=== PATIENT | female | born 1985 | race Caucasian/White ===

== ENCOUNTER 2016-09-15 14:14 | Emergency (ER) | payer OTHER ==
[~2016-09-15 14:14] MED LIST: ANTIBIOTIC; OXYCODONE/APAP
[2016-09-15] MEDS ORDERED: NO HOME MEDICATION XX (16:02)
[2016-09-15 17:02] LABS: BASO % 0.2 % (0-2); EOS % 1.3 % (0-7); EOSINOPHIL ABSOLUTE COUNT 0.1 tho/cmm (0.0-0.7); HCT-HEMATOCRIT 40.4 % (34.0-49.0); HGB-HEMOGLOBIN 13.7 gm/dl (12.0-15.5); IMMATURE GRANULOCYTES ABSOLUTE 0.01 tho/cmm (0-0.03); IMMATURE GRANULOCYTES PERCENT 0.1 % (0-0.3); LYMPH % 20.6 % (20-45); LYMPH ABSOLUTE COUNT 1.7 tho/cmm (0.8-4.5); MCH (MEAN CORPUSCULAR HGB) 30.8 pg (28.0-32.0); MCHC MEAN CORPUSCULAR HGB CONC 33.9 % (32.0-36.0); MCV (MEAN CELL VOLUME) 90.8 fl (82.0-96.0); MEAN PLATELET VOLUME 10.4 cmc (9.4-12.4); MONO % 9.1 % (0-12); MONOCYTE ABSOLUTE COUNT 0.8 tho/cmm (0.0-1.2); NEUTROPHIL ABSOLUTE COUNT 5.7 tho/cmm (1.6-8.0); NEUTROPHIL-AUTOMATED 5.7 tho/cmm (1.6-8.0); NEUTROPHILS % 68.7 % (40-80); PLATELET COUNT 305 tho/cmm (150-450); RED BLOOD COUNT 4.45 mil/cmm (4.00-5.20); WHITE BLOOD COUNT 8.3 tho/cmm (4.0-10.0)
[2016-09-15 17:19] LABS: PREGNANCY-SERUM NEGATIVE (NEGATIVE)
[2016-09-15 17:27] LABS: ANION GAP 9 mmol/L (0-20); BLOOD UREA NITROGEN 10 mg/dl (6-24); CALCIUM 9.4 mg/dl (8.5-10.5); CARBON DIOXIDE-VENOUS 30 mmol/L (22-32); CHLORIDE 104 mmol/l (96-110); CREATININE 0.81 mg/dl (0.50-1.10); GLUCOSE 95 mg/dL (70-110); POTASSIUM 3.8 mmol/L (3.7-5.1); SODIUM 139 mmol/L (135-145); eGFR VALUE FOR BLACK >90 mL/Min
[2016-09-15 17:56] LABS: URINE BILIRUBIN NEGATIVE (NEG); URINE BLOOD MODERATE (NEG); URINE GLUCOSE (UA) NEGATIVE (NEG); URINE KETONE MODERATE (NEG); URINE LEUKOCYTE ESTERASE NEGATIVE (NEG); URINE NITRITE NEGATIVE (NEG); URINE PROTEIN NEGATIVE (NEG); URINE SPECIFIC GRAVITY 1.005 (1.003-1.030)
[2016-09-15 18:03] LABS: URINE APPEARANCE CLEAR; URINE COLOR YELLOW
[2016-09-15 18:04] LABS: URINE EPITHELIAL CELLS 0 /[HPF] (0-10); URINE RBC 0-1 /[HPF] (0-5); URINE WBC 0 /[HPF] (0-5)
[2016-09-15] MEDS ORDERED: NORCO 5-325 TA1 EACH PO (19:48)
== END 2016-09-15 20:01 ==
LOC: EDMED 14:14
PROVIDERS: Nurse Practitioner Family
DX: N93.8 Other specified abnormal uterine and vaginal bleeding (principal); R10.2 Pelvic and perineal pain; R10.31 Right lower quadrant pain; R10.32 Left lower quadrant pain; Z98.890 Other specified postprocedural states; Z90.49 Acquired absence of other specified parts of digestive tract
CPT/HCPCS: J1885; Q9967